=== PATIENT | male | born 1980 | race Caucasian/White ===

== ENCOUNTER → 2018-10-30 | Outpatient (CLI) | payer OTHER | LOC: FIMAGING 08:03 | PROVIDERS: ATTEND Family Medicine | DX: M51.26 Other intervertebral disc displacement, lumbar region (principal) ==

== ENCOUNTER → 2018-11-11 | Outpatient (CLI) | payer OTHER | LOC: FIMAGING 08:51 | PROVIDERS: ATTEND Internal Medicine Hematology & Oncology | DX: M89.9 Disorder of bone, unspecified (principal); R93.89 Abnormal findings on diagnostic imaging of other specified body structures | CPT/HCPCS: 78320; A9503 ==

== ENCOUNTER → 2018-11-17 | Day surgery (SDC) | payer OTHER ==
[~2018-11-17] MED LIST: ACETAMINOPHEN 325 MG TAB PO PRN; FLUMAZENIL 0.5 MG/5 ML MDV IVP ONE; FLUMAZENIL 0.5 MG/5 ML MDV IVP PRN; HEPARIN 10,000 UNIT/10 ML MDV (1,000 UNIT/ML) IVP PRN; MEPERIDINE 25 MG/ML SYR IVP PRN; MIDAZOLAM 2 MG/2 ML VIAL IVP PRN; NALOXONE HCL 0.4 MG/ML INJ IVP PRN; NS 1,000 ML IV SCH; ONDANSETRON 4 MG/2 ML VIAL IVP PRN; OXYCODONE/APAP 5/325 TAB ONE; OXYCODONE/APAP 5/325 TAB PO ONE; fentaNYL 100 MCG/2 ML INJ IVP PRN
[2018-11-17 10:01] LABS: PLATELET COUNT 218 10^3/uL (150-400)
[2018-11-17 10:09] LABS: INR 1.02 (0.83-1.16); PROTIME(PATIENT) 13.6 SEC (12.0-15.0)
--- NOTE | 2018-11-17 10:42 | PDRADPRE ---
Radiology History & Physical Indication for procedure: other (Iliac bone lesions, plan for CT guided biopsy of right iliac bone) Home medications: NK [No Known Home Meds] 11/17/18 [Last Taken Unknown] Allergies/Adverse Reactions: No Known Allergies Allergy (Verified 11/17/18 09:58) Mental status: A&Ox3 Heart exam: regular rate and rhythm Lungs exam: clear to auscultation Mallampati Score: Class 1
--- NOTE | 2018-11-17 10:42 | PDPROPOC ---
Sedation Plan of Care Sedation Plan of Care: vital signs stable, mental status noted, patient educated of risks, benefits, alternatives, patient can tolerate sedation ASA Classification: ASA 2 Planned drugs: fentanyl, midazolam Mallampati Score: Class 1 Mallampati Reference Image: Patient passed 3-3-2 rule?: Yes
--- NOTE | 2018-11-17 11:48 | PDRADPN ---
Radiology Procedure Note Date of Procedure: 11/17/18 Radiologist: Grzegorz Sheffield Anesthesia: IV Sedation Pre-op Diagnosis: Iliac bone lesions Post-op Diagnosis: Iliac bone lesions Indication: Iliac bone lesions Procedure: CT guided bone lesion biopsy Finding(s): Unable to visualize osseous lesions seen only on MRI. 5 core biopsies from right posterior superior iliac spine region where dominant, superficial lesions were seen. Sent in [facility] per pathology. Inf/Abcess present in the surg proc area at time of surgery?: No
[2018-11-17 13:24] VITALS: BP 115/70
== END | disposition home or self-care (01) ==
LOC: FIMAGING 09:01
PROVIDERS: ATTEND Internal Medicine Hematology & Oncology
DX: M89.9 Disorder of bone, unspecified (principal); R93.89 Abnormal findings on diagnostic imaging of other specified body structures; Z87.891 Personal history of nicotine dependence
CPT/HCPCS: 88184-90; 88185-91; J2250; J2310; J3010

== ENCOUNTER 2018-11-29 10:19 | Day surgery (SDC) | payer OTHER ==
[2018-11-29] MEDS ORDERED: PROTAMINE SULFATE 50 MG/5 ML VIAL IVP PRN (10:20)
[2018-11-29] MEDS ORDERED: FLUMAZENIL 0.5 MG/5 ML MDV IVP PRN (10:20)
[2018-11-29] MEDS ORDERED: ALTEPLASE 2 MG VIAL IVP PRN (10:20)
[2018-11-29] MEDS ORDERED: HEPARIN 10,000 UNIT/10 ML MDV (1,000 UNIT/ML) IVP PRN (10:20)
[2018-11-29] MEDS ORDERED: MEPERIDINE 25 MG/ML SYR IVP PRN (10:20)
[2018-11-29] MEDS ORDERED: GLUCAGON HCL 1 MG VIAL IVP PRN (10:20)
[2018-11-29] MEDS ORDERED: MIDAZOLAM 2 MG/2 ML VIAL IVP PRN (10:20)
[2018-11-29] MEDS ORDERED: NALOXONE HCL 0.4 MG/ML INJ IVP PRN (10:20)
[2018-11-29] MEDS ORDERED: fentaNYL 100 MCG/2 ML INJ IVP PRN (10:20)
[2018-11-29] MEDS ORDERED: NS 1,000 ML IV SCH (10:30)
[2018-11-29 11:31] LABS: INR 1.02 (0.83-1.16); PROTIME(PATIENT) 13.6 SEC (12.0-15.0)
[2018-11-29] MEDS ORDERED: LIDOCAINE 1% 300 MG/30 ML SDV ONE (11:37)
[2018-11-29] MEDS ORDERED: IOHEXOL 300 mgI/ML (OMNIPAQUE) 150 ML BTL IV ONE (11:49)
[2018-11-29] MEDS ORDERED: fentaNYL 100 MCG/2 ML INJ ONE (12:34)
[2018-11-29] MEDS ORDERED: KETOROLAC 30 MG/1 ML SDV ONE (12:37)
[2018-11-29] MEDS ORDERED: MIDAZOLAM 2 MG/2 ML VIAL ONE (12:38)
[2018-11-29] MEDS ORDERED: ONDANSETRON 4 MG/2 ML VIAL IVP PRN (12:58)
[2018-11-29] MEDS ORDERED: oxyCODONE IR 5 MG TAB PO PRN (12:58)
--- NOTE | 2018-11-29 13:00 | PDRADPRE ---
Radiology History & Physical Indication for procedure: other (Splenic lesions; CT and US guided biopsy) Home medications: NK [No Known Home Meds] 11/17/18 [Last Taken Unknown] Allergies/Adverse Reactions: No Known Allergies Allergy (Verified 11/17/18 09:58) Mental status: A&Ox3 Heart exam: regular rate and rhythm Lungs exam: clear to auscultation Mallampati Score: Class 1
--- NOTE | 2018-11-29 13:02 | PDRADPN ---
Radiology Procedure Note Date of Procedure: 11/29/18 Radiologist: Grzegorz Sheffield Anesthesia: IV Sedation Pre-op Diagnosis: Splenic lesion Post-op Diagnosis: Splenic lesion Indication: Cancer workup, liver and splenic lesion Procedure: US and CT guided biopsy Finding(s): Unable to visualize liver lesions Splenic lesions seen with linear probe only, 18 ga core biopsy of superfiscial lesion in lower pole. Post procedure CT scan demonstates no hemorrhage or pneumothorax. Please see radiology report for full details. Inf/Abcess present in the surg proc area at time of surgery?: No
[2018-11-29] MEDS ORDERED: KETOROLAC 30 MG/1 ML SDV IVP ONE (13:45)
[2018-11-29 17:21] VITALS: BP 128/69
== END 2018-11-29 17:00 | disposition home or self-care (01) ==
LOC: FIMAGING 10:19
PROVIDERS: ATTEND Internal Medicine Hematology & Oncology
PROC: 07BP3ZX Excision of Spleen, Percutaneous Approach, Diagnostic (ICD-10-PCS; principal; 2018-11-29 13:10)
DX: D73.89 Other diseases of spleen (principal); Z87.891 Personal history of nicotine dependence
CPT/HCPCS: J1885; J2250; J3010; Q9967